=== PATIENT | female | born 1960 | race Native Hawaiian/Other Pacific Islander ===

== ENCOUNTER 2021-06-08 07:52 | Day surgery (SDC) | payer OTHER ==
[~2021-06-08] VITALS: Ht 175.3 cm; Wt 98.4 kg
[2021-06-08] MEDS ORDERED: fentaNYL citrate 0.05 MG/ML VIAL ONE (09:40)
[2021-06-08] MEDS ORDERED: LIDOCAINE 2% 100 MG/5 ML UJET TP ONE ×2 (09:40→10:05)
[2021-06-08] MEDS ORDERED: fentaNYL citrate 0.05 MG/ML VIAL IVP ONE (10:05)
== END 2021-06-08 11:30 | disposition home or self-care (01) ==
LOC: MDS 07:52 → MMU 07:56 → MDS 11:30
PROVIDERS: ATTEND Internal Medicine Gastroenterology
DX: Z12.11 Encounter for screening for malignant neoplasm of colon (principal); D12.2 Benign neoplasm of ascending colon; D12.7 Benign neoplasm of rectosigmoid junction; E11.9 Type 2 diabetes mellitus without complications; E03.9 Hypothyroidism, unspecified; M19.90 Unspecified osteoarthritis, unspecified site; F41.9 Anxiety disorder, unspecified; Z80.3 Family history of malignant neoplasm of breast; Z79.84 Long term (current) use of oral hypoglycemic drugs; Z79.899 Other long term (current) drug therapy
CPT/HCPCS: 45385; J3010